=== PATIENT | female | born 1940 | race Hispanic/Latino ===

== ENCOUNTER 2018-01-06 08:01 | Emergency (ER) | payer MEDICARE, BC ==
[2018-01-06 08:28] VITALS: BMI 17.2
[2018-01-06] MEDS ORDERED: Sodium Chloride 0.9% 500 ML IV STA (08:54)
--- NOTE | 2018-01-06 09:01 | ED PDOC ---
Arrival/HPI - General Chief Complaint: GI Problem Time Seen by Provider: 01/06/18 08:07 Historian: Patient - History of Present Illness Narrative History of Present Illness (Text): 01/06/18 08:55 77 year old female, whose history includes chronic constipation and hemorrhoids , presents to the Emergency department following Dr. Conte's instructions to seek Emergency department evaluation. Patient has had intermittent abdominal pain described as cramping for 5 days, as well as increased flatulence and foul smelling bowel movements for 2 weeks. Patient also noticed pink in her bowel movements 4 days ago. Patient will call tomorrow to make an appointment for a colonoscopy. Patient denies any fever, chills, chest pain, shortness of breath, nausea, vomiting, urinary symptoms, back pain, neck pain, headache, dizziness, or any other complaints. Time/Duration: < week Symptom Onset: Gradual Symptom Course: Intermittent Context: Home Past Medical History - Provider Review Nursing Documentation Reviewed: Yes - Cardiac Hx Cardiac Disorders: Yes Hx Hypertension: Yes - Pulmonary Hx Respiratory Disorders: No - Neurological Hx Neurological Disorder: No - HEENT Hx HEENT Disorder: Yes Other/Comment: increased pressure in eyes - Renal Hx Renal Disorder: No - Endocrine/Metabolic Hx Endocrine Disorders: No - Hematological/Oncological Hx Blood Disorders: No - Integumentary Hx Dermatological Disorder: Yes Other/Comment: skin cancer - Musculoskeletal/Rheumatological Hx Musculoskeletal Disorders: No - Gastrointestinal Hx Gastrointestinal Disorders: No - Genitourinary/Gynecological Hx Genitourinary Disorders: No - Psychiatric Hx Psychophysiologic Disorder: No Hx Substance Use: No - Surgical History Other/Comment: skin biopsy Family/Social History - Physician Review Nursing Documentation Reviewed: Yes Family/Social History: Unknown Family HX Smoking Status: Never Smoked Hx Alcohol Use: No Hx Substance Use: No Allergies/Home Meds Allergies/Adverse Reactions: Allergies No Known Allergies Allergy (Verified 01/06/18 08:21) Home Medications: Home Meds Medication Instructions Recorded Confirmed Brimonidine Tartrate/Timolol 1 drop BOTHEYES BID 01/06/18 01/06/18 [Combigan 0.2%-0.5% Eye Drops] Travoprost [Travatan Z 2.5 ml] 2.5 ml OP HS 01/06/18 01/06/18 Valsartan/Hydrochlorothiazide 1 tab PO DAILY 01/06/18 01/06/18 [Valsartan and Hydrochlorothiazide 12.5 mg-80 ] Review of Systems - Review of Systems Constitutional: absent: Fevers, Night Sweats Respiratory: absent: SOB Cardiovascular: absent: Chest Pain Gastrointestinal: Abdominal Pain, Stool Changes, Diarrhea. absent: Constipation , Nausea, Vomiting, Hematemesis, Anorexia Genitourinary Female: absent: Dysuria, Frequency Musculoskeletal: absent: Back Pain, Neck Pain Neurological: absent: Headache, Dizziness Endocrine: absent: Polyuria Physical Exam - Physical Exam Narrative Physical Exam (Text): 01/06/18 09:54 Head: Atraumatic. Normocephalic. Eyes: PERRL. EOMI. Conjunctivae are not pale. ENT: Mucous membranes are moist and intact. Neck: Supple. Full ROM. No JVD. No lymphadenopathy. Cardiovascular: Regular rate. Regular rhythm. No murmurs, rubs, or gallops. Pulmonary/Chest: No evidence of respiratory distress. Clear to auscultation bilaterally. No wheezing, rales or rhonchi. Abdominal: Soft and non-distended. There is no tenderness. No rebound, guarding, or rigidity. No organomegaly. Good bowel sounds. No pain with deep palpation. Rectal: no melena, NO thrombosed hemorrhoid noted, no gross bloody, no external masses visualized Back: No CVA tenderness. Extremities: No edema. No cyanosis. No clubbing. Full range of motion in all extremities. No calf tenderness. Skin: Skin is warm and dry. No petechiae. No purpura. Neurological: Alert, awake, and oriented. Normal speech. Motor and sensory exam intact. Psychiatric: Good eye contact. Normal interaction, affect, and behavior. Vital Signs Reviewed: Yes Vital Signs Temp Pulse Resp BP Pulse Ox 01/06/18 11:57 97.9 F 01/06/18 11:43 70 18 120/54 L 99 01/06/18 08:22 97.4 F L 84 17 95/58 L 100 Temperature: Afebrile Pulse: Regular Respiratory Rate: Normal Appearance: Positive for: Well-Appearing, Non-Toxic, Comfortable Pain Distress: None Mental Status: Positive for: Alert and Oriented X 3 Medical Decision Making ED Course and Treatment: 01/06/18 08:55 Impression: 77 year old female presents to the Emergency department complaining of intermittent loose stools and mild "cramping" at times Differential Diagnosis included but are not limited to: gastroenteritis vs. colitis vs. hemorrhoids, vs. IBD, r/o intraabdominal Plan: -- Labs --serial exams Progress Notes: 01/06/18 08:55 Patient is not currently experiencing any abdominal pain. Repeat blood pressure reads 134/73. I reviewed history in length. No recent travel. No recent antibiotic usage. Patient with no abdominal pain with serial exams. Rectal exam reveals no melena or active bleeding. She is cv stable and afebrile. Single loose BM, she reports foul smelling, not grossly bloody with BM. She is eating and drinking without difficulty and tolerating po. She has been in communication with Dr. Brito, GI, and follow-up has been arranged and she is to call him tomorrow. I reviewed labs with patient and daughter. Potassium reviewed with patient. She was given oral potassium and advised to eat bananas and I stated that if any diarrhea persists or return she is to have labs rechecked. I have discussed with her and daughter limitations of lab tests in diagnosing cancer, malignancy , however patient is CV stable, with NO ABDOMINAL PAIN WITH SERIAL EXAMS, thus will discharge with follow-up PMD and GI as no pain, no fever, and is cardiovascularly stable. Case reviewed with Dr. Arriaza, covering for patient's PMD. Discussed plan with daughter with patient's permission. Reassessment Condition: Re-examined - Lab Interpretations Lab Results: 01/06/18 09:20 01/06/18 09:20 Lab Results 01/06/18 10:25: Urine Color Yellow, Urine Appearance Clear, Urine pH 6.5, Ur Specific [place] 1.010, Urine Protein Negative, Urine Glucose (UA) Negative, Urine Ketones Negative, Urine Blood Trace-intact H, Urine Nitrate Negative, Urine Bilirubin Negative, Urine Urobilinogen 0.2, Ur Leukocyte Esterase Negative , Urine RBC 0 - 2, Urine WBC Negative, Urine Bacteria Trace 01/06/18 09:20: Sodium 143, Potassium 3.1 L, Chloride 100, Carbon Dioxide 31, Anion Gap 15, BUN 15, Creatinine 0.7, Est GFR ( Amer) > 60, Est GFR (Non- Af Amer) > 60, Random Glucose 115 H, Calcium 9.3, Total Bilirubin 0.4, AST 21, ALT 24, Alkaline Phosphatase 64, Total Protein 7.0, Albumin 4.1, Globulin 2.9, Albumin/Globulin Ratio 1.4 01/06/18 09:20: WBC 8.8, RBC 3.98, Hgb 12.8, Hct 37.2, MCV 93.5, MCH 32.2, MCHC 34.4, RDW 13.2, Plt Count 221, MPV 9.0, Gran % 70.6 H, Lymph % (Auto) 19.9 L, [place] % (Auto) 7.9 H, Eos % (Auto) 1.0 L, Baso % (Auto) 0.6, Gran # 6.18, Lymph # (Auto) 1.7, [place] # (Auto) 0.7 H, Eos # (Auto) 0.1, Baso # (Auto) 0.05 - Medication Orders Current Medication Orders: Discontinued Medications Sodium Chloride (Sodium Chloride 0.9%) 500 mls @ 1,000 mls/hr IV .Q30M STA Stop: 01/06/18 09:23 Last Admin: 01/06/18 09:27 Dose: 1,000 mls/hr eMAR Start Stop Document 01/06/18 09:27 [facility] (Rec: 01/06/18 09:27 [facility] [id number]) Intravenous Solution Start Date 01/06/18 Start Time 09:27 End Date 01/06/18 End time 10:00 Total Infusion Time 33 Potassium Chloride (K-Dur 20 Meq Er Tab) 40 meq PO STAT STA Stop: 01/06/18 10:09 Last Admin: 01/06/18 10:25 Dose: 40 meq - Scribe Statement The provider has reviewed the documentation as recorded by the Lalit Ivey Provider Scribe Attestation: All medical record entries made by the Lalit were at my direction and personally dictated by me. I have reviewed the chart and agree that the record accurately reflects my personal performance of the history, physical exam, medical decision making, and the department course for this patient. I have also personally directed, reviewed, and agree with the discharge instructions and disposition. Disposition/Present on Arrival - Present on Arrival Any Indicators Present on Arrival: No History of DVT/PE: No History of Uncontrolled Diabetes: No Urinary Catheter: No History of Decub. Ulcer: No History Surgical Site Infection Following: None - Disposition Have Diagnosis and Disposition been Completed?: Yes Diagnosis: Diarrhea, Hypokalemia Disposition: HOME/ ROUTINE Disposition Time: 11:25 Patient Plan: Discharge Condition: GOOD Discharge Instructions (ExitCare): Diarrhea and Traveler's Diarrhea, Adult (DC) , Hypokalemia (DC) Additional Instructions: Monitor your bowel movements and symptoms. If you develop any abdominal pain, any fevers, any dark or bloody stool, any persistent or worsening of increase in amount of loose stools, any new or persistent symptoms, get rechecked. It is important that you follow-up with your gastoenterologist Dr. Harrison Brito tomorrow. Follow-up with Dr. Valles as well this week. Referrals: Harrison Brito MD [Staff Provider] - Follow up with primary Dinesh Valles MD [Staff Provider] - Follow up with primary Forms: [employer] (French)
[2018-01-06 09:44] LABS: ALB/GLOB RATIO 1.4 (1.1-1.8); ALBUMIN 4.1 g/dL (3.0-4.8); ALT/SGPT 24 U/L (7-56); AST/SGOT 21 U/L (14-36); BLOOD UREA NITROGEN 15 mg/dL (7-21); CALCIUM 9.3 mg/dL (8.4-10.5); GFR AFRICAN-AMERICAN > 60; GFR NON-AFRICAN AMERICAN > 60
[2018-01-06 09:45] LABS: BASO # 0.05 K/mm3 (0.0-2.0); BASO % 0.6 % (0.0-3.0); EOS # 0.1 (0.0-0.7); GRAN # 6.18 (1.4-6.5); GRAN % 70.6 % (50.0-68.0); HEMOGLOBIN 12.8 g/dL (12.0-16.0); LYMPH # 1.7 (1.2-3.4); LYMPH % 19.9 % (22.0-35.0); MEAN CELL VOLUME 93.5 fl (80.0-105.0); MEAN CORPUSCULAR HEMOGLOBIN 32.2 pg (25.0-35.0); MEAN CORPUSCULAR HGB CONC 34.4 g/dl (31.0-37.0); MONO # 0.7 (0.1-0.6); MONO % 7.9 % (1.0-6.0); RBC 3.98 10^6/uL (3.5-6.1); RED CELL DISTRIBUTION WIDTH 13.2 % (11.5-14.5); WHITE BLOOD COUNT 8.8 10^3/ul (4.5-11.0)
[2018-01-06] MEDS ORDERED: Potassium Chloride 20 mEq ER Tab PO STA (10:08)
[2018-01-06 10:52] LABS: PH,URINE 6.5 (4.7-8.0); URINE BILIRUBIN NEGATIVE (NEGATIVE); URINE BLOOD TRACE-INTACT (NEGATIVE); URINE GLUCOSE (UA) NEGATIVE (NEGATIVE); URINE LEUKOCYTE ESTERASE NEGATIVE Leu/uL (NEGATIVE); URINE PROTEIN NEGATIVE mg/dL (<30 mg/dL); URINE UROBILINOGEN 0.2 E.U./dL (<1 E.U./dL)
[2018-01-06 10:53] LABS: URINE APPEARANCE CLEAR (CLEAR); URINE COLOR YELLOW (YELLOW)
[2018-01-06 11:06] LABS: URINE BACTERIA TRACE (NEG); URINE RBC 0 - 2 /hpf (0-2); URINE WBC NEGATIVE /hpf (0-6)
[2018-01-06 11:44] VITALS: BP 120/54; PULSE 70; RESP 18; O2SAT 99
[2018-01-06 11:58] VITALS: TEMP 97.9
== END 2018-01-06 11:59 | disposition home or self-care (01) ==
LOC: ED 08:01
DX: R19.7 Diarrhea, unspecified (principal); E87.6 Hypokalemia
CPT/HCPCS: 80053; 81001; 85025; 96360; 99284; J7040